=== PATIENT | male | born 1960 ===

== ENCOUNTER 2023-11-17 08:45 | Outpatient (CLI) | payer OTHER, SELFPAY ==
--- NOTE | ~2023-11-17 | MR_ITS ---
EXAMINATION: MR knee RT wo con DATE: 11/17/2023 09:16 INDICATION: Meniscal tear with medial right knee pain TECHNIQUE: Magnetic resonance imaging (MRI) of the right knee was performed without intravenous contr ast. Sequences included coronal PD-weighted FSE, coronal PD-weighted FS FSE, sagittal T2-weighted FS E, sagittal PD-weighted FS FSE and axial PD weighted fat saturated FSE. COMPARISON: None. FINDINGS: Medial compartment: Partial-thickness radial tear extending across the inner half of the posterior horn of the medial men iscus. Partial-thickness chondral ulceration and deep fissuring with underlying cortical irregularity and minimal subarticular cystlike change along the central to posterior weightbearing medial femoral condyle. Lateral compartment: Lateral meniscus is normal. Articular cartilage is normal. Patellofemoral compartment: Partial-thickness chondral ulceration and deep fissuring with underlying subarticular edema-like and cystlike changes along the caudal third of the patella including the medial and lateral facets and in tervening apical ridge. Subarticular cystlike changes underlying a small region of deep chondral fiss uring at the inferior aspect of the medial trochlea. Shallow chondral ulceration without degenerative subchondral changes at the inferior half of the trochlear groove. Ligaments and tendons: Anterior and posterior cruciate ligaments are normal. The medial collateral ligament and fibular jeri ateral ligament complex are normal. The extensor mechanism is normal. The visualized medial and later al hamstring tendons as well as the iliotibial band are normal. Fluid: Physiologic amount of fluid in the joint space. No loose osteochondral bodies identified. Osseous/other: Bone alignment is normal. There are a few low signal intensity bone islands at the proximal tibia and at the lateral femoral condyle. No fracture or pathologic marrow replacing process. IMPRESSION: 1. Partial-thickness radial tear at the posterior horn of the medial meniscus. 2. 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 Reviewed, dictated and finalized at location B. [employer] IMPRESSION: 1. Partial-thickness radial tear at the posterior horn of the medial meniscus. 2. 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
== END 2023-11-17 08:46 ==
LOC: MICIMG 08:46
DX: M25.561 Pain in right knee (principal); S83.241A Other tear of medial meniscus, current injury, right knee, initial encounter; M17.11 Unilateral primary osteoarthritis, right knee; M94.261 Chondromalacia, right knee
CPT/HCPCS: 73721